=== PATIENT | female | born 1935 | race Caucasian/White ===

== ENCOUNTER 2018-06-30 20:31 | Inpatient (IN) | payer MEDICARE ==
[~2018-06-30] VITALS: Ht 165.1 cm; Wt 50.1 kg
--- NOTE | ~2018-06-30 | HEMODYNAMI ---
PATIENT:THOM NIÑO MEDICAL RECORD: [id number] : 35 [facility].2[id number] ADMISSION DATE: 06/30/18 Generatedon:07/01/201814:51 Patient name: THOM NIÑO Patient #: [id number] SSN: : 1935 Date of study: 07/01/2018 Page: Of Hemodynamic Procedure Report Patient Data Patient Demographics Procedure consent was obtained First Name: THOM Gender: Female Last Name: RENAY : 1935 Patient #: [id number] Age: 82 year(s) Race: Unknown Additional ID: [id number] Contact details [address]: [address] [place] [address] State: [place] City: [place] Zip code: [address] Admission Admission Data Admission Date: 06/30/2018 Admission Time: 22:15 Admit Source: Emergency department Room #: D.2134 Procedure Procedure Types Cath Procedure Diagnostic Procedure LHC LH w/Coronaries PCI Procedure Coronary Stent Coronary Stent Initial Procedure Description Procedure Date Procedure Date: 07/01/2018 Procedure Start Time: 14:20 Procedure End Time: 14:44 Procedure Staff Name Function Oneil Carlton RT Monitor Mario Dinero MD Performing Physician Mode Hicks RT Scrub Lindsay Laura RN Nurse Procedure Data Cath Procedure Fluoroscopy Diagnostic fluoroscopy Total fluoroscopy Time: 5.2 time: 5.2 min min Diagnostic fluoroscopy Total fluoroscopy dose: 139 dose: 139 mGy mGy Contrast Material Contrast Material Type Amount (ml) Isovue 300 144 Entry Location Entry Primary Successful Side Size Upsize Upsize Entry Closure Succes sful Closure Location (Fr) 1 (Fr) 2 (Fr) Remarks Device Remarks Femoral Right 5 Fr 6 Fr Exoseal artery Short Estimated blood loss: 10 ml Diagnostic catheters Device Type Used For End Catheter Placement MULTIPACK Pigtail 5 Fr Procedure catheter MULTIPACK JL 4.0 5Fr Procedure catheter MULTIPACK 3DRC 5Fr Procedure catheter Procedure Complications No complications Procedure Medications Medication Administration Route Dosage 0.9% NaCl I.V. 100 ml/hr Oxygen etCO2 Nasal cannula 2 l/min Lidocaine 2% added to field 20 Heparin Flush Bag added to field 2 bags (1000units/500ml NS) Versed I.V. 2 mg Fentanyl I.V. 50 mcg Versed I.V. 1 mg Fentanyl I.V. 25 mcg Heparin Bolus I.V. 4000 units Integrilin (Bolus I.V. 4.5 ml 2mg/ml) Plavix P.O. 600 mg Lopressor I.V. 5 mg Versed I.V. 1 mg Fentanyl I.V. 25 mcg Hemodynamics Rest Heart Rate: 68 (bpm) Snapshots Pre Cath Intra NCS Post Cath Vital Signs Time Heart Resp SPO2 etCO2 NIBP (mmHg) Rhythm Pain Sedation Rate (ipm) (%) (mmHg) Status Level (bpm) 13:57:49 69 10 99 3.7 170/78(125) NSR 0 (11) 10(A) , No pain 14:02:11 76 12 97 30 159/82(120) NSR 0 (11) 10(A) , No pain 14:06:29 82 13 96 22.2 151/83(114) NSR 0 (11) 10(A) , No pain 14:10:47 77 13 98 30 155/74(117) NSR 0 (11) 10(A) , No pain 14:15:07 81 13 99 20 133/67(102) NSR 0 (11) 10(A) , No pain 14:19:21 82 15 96 20 133/69(98) NSR 0 (11) 10(A) , No pain 14:23:35 83 18 97 20 114/63(92) NSR 0 (11) 10(A) , No pain 14:27:39 88 13 98 20 131/72(96) NSR 0 (11) 9(A) , No pain 14:32:32 105 16 98 25 159/86(112) NSR 0 (11) 10(A) , No pain 14:36:46 81 17 97 27 180/115(147) NSR 0 (11) 9(A) , No pain 14:41:14 71 13 96 20 182/75(138) NSR 0 (11) 9(A) , No pain 14:43:29 69 10 96 20 170/73(120) NSR 0 (11) 10(A) , No pain 14:48:39 64 13 96 0 144/67(93) NSR 0 (11) 10(A) , No pain Medications Time Medication Route Dose Verified Delivered Reason Notes Effectiveness by by 14:10:26 0.9% NaCl I.V. 100 Mario Lindsay used for ml/hr Bar Laura day habilitation specialist 14:10:34 Oxygen etCO2 2 Mario Lindsay used for Nasal l/min Bar Laura procedure cannula RN 14:10:41 Lidocaine 2% added 20ml Mario Mario for local to vial Bra Dinero MD anesthetic field 14:10:46 Heparin Flush added 2 Mario Mario used for Bag to bags Bar Dinero MD procedure (1000units/500ml field NS) 14:18:52 Versed I.V. 2 mg Mario Lindsay for sedation Bar Laura RN 14:18:58 Fentanyl I.V. 50 Mario Lindsay for sedation mcg Bar Laura RN 14:24:07 Versed I.V. 1 mg Mario Lindsay for sedation Bar Laura RN 14:24:11 Fentanyl I.V. 25 Mario Lindsay for sedation mcg Bar Laura RN 14:25:31 Heparin Bolus I.V. 4000 Mario Lindsay for verif ied units Bar Laura anticoagulation with Dr. PATTI Archibald 14:26:44 Integrilin I.V. 4.5 Mario Lindsay for waste d (Bolus 2mg/ml) ml Bar Laura anticoagulation 5.5 mL RN 14:29:18 Plavix P.O. 600 Mario Lindsay for mg Bar Laura antiplatelet RN therapy 14:34:51 Lopressor I.V. 5 mg Mario Lindsay Per physician Bar Laura RN 14:35:08 Versed I.V. 1 mg Mario Lindsay for sedation Bar Laura RN 14:35:12 Fentanyl I.V. 25 Mario Lindsay for sedation mcg Bar Laura RN Procedure Log Time Note 13:12:49 Admit Source: Emergency department 13:13:18 Diagnostic Cath status Elective 13:13:20 Mode Hicks RT(R) sent for patient. Start room use. 13:13:21 Time tracking: Regular hours (M-F 7:00 - 5:00) 13:13:27 Plan of Care:Hemodynamics will remain stable., Cardiac rhythm will remain stable., Comfort level will be maintained., Respiratory function will remain adequate., Patient/ family verbilizes understanding of procedure., Procedure tolerated without complication., Recovers from procedure without complications.. 13:48:11 Patient received from Med II to CCL 3 Alert and oriented. Tansferred to table in Supine position. 13:48:12 Warm blankets applied, and alexandria hugger turned on for patient comfort. 13:48:13 Correct patient and procedure confirmed by team. 13:48:15 Signed procedure consent form obtained from patient. 13:48:16 ECG and BP/O2 sat monitors applied to patient. 13:55:38 Vital chart was started 13:57:35 Baseline sample Acquired. 13:57:42 Rhythm: sinus rhythm 13:57:43 Full Disclosure recording started 13:57:59 H&P Date Dictated: 07/01/2018 Within 30 days and on chart.. 13:58:01 Pre-op teaching completed and patient verbalized understanding. 13:58:01 Pre-procedure instructions explained to patient. 13:58:04 Family in patients room. 13:58:06 Patient NPO since Midnight. 13:58:07 Is the patient allergic to Iodine/contrast media? No. 13:58:11 Is patient on blood thinner?No 13:58:13 Patient diabetic? No. 13:58:16 Previous problem with sedation/anesthesia? No ? 13:58:17 Snore? No 13:58:18 Sleep apnea? No 13:58:19 Deviated septum? No 13:58:20 Sticks out tongue? Yes 13:58:20 Opens mouth fully? Yes 13:58:23 Airway obstruction? No ? 13:58:24 Dentures? No ? 13:58:29 Pre procedure: right dorsailis pedis pulse 1+ Palpable, but thready & weak; easily obliterated 13:58:54 Radial artery to small for access. 13:58:57 Patient pain scale 0/10 ?. 13:59:22 IV patent on arrival in right forearm with 0.9% NaCl at [facility]. 13:59:24 Lab results completed and on chart. 13:59:29 Right groin area was prepped with chlora-prep and draped in sterile fashion 13:59:30 Alarms reviewed by R. N. 13:59:31 Sharps counted by scrub and verified by R.N. 13:59:37 Use device set Femoral Dx 13:59:39 Tegaderm 4 x 4 (1626W) opened to sterile field. 13:59:40 ACIST Manifold (21943) opened to sterile field. 13:59:41 ACIST Hand Control (00886) opened to sterile field. 13:59:43 Bag Decanter (2002S) opened to sterile field. 13:59:43 ACIST Syringe (72609) opened to sterile field. 13:59:44 Medline Cath Pack ([id number]) opened to sterile field. 13:59:45 DIAGNOSTIC WIRE .035 260cm J wire (593316) opened to sterile field. 13:59:46 DIAGNOSTIC Multipack 5Fr catheter set (CU9378) opened to sterile field. 13:59:47 SHEATH 5FR [place] (OPH255) opened to sterile field. 14:10:26 0.9% NaCl 100 ml/hr I.V. was administered by Lindsay Laura RN; used for procedure; 14:10:34 Oxygen 2 l/min etCO2 Nasal cannula was administered by Lindsay Laura RN; used for procedure; 14:10:41 Lidocaine 2% 20ml vial added to field was administered by Mario Dinero MD; for local anesthetic; 14:10:46 Heparin Flush Bag (1000units/500ml NS) 2 bags added to field was administered by Mario Dinero MD; used for procedure; 14:17:49 --------ALL STOP TIME OUT------ 14:17:50 Final Timeout: patient, procedure, and site verified with staff and physician. All members of the team are in agreement. 14:17:52 Right groin site verified by team. 14:17:55 Physical assessment completed. ASA score P 2 - A patient with mild systemic disease as per Mario Dinero MD. 14:17:57 Sedation plan: IV Moderate Sedation Medication:Versed, Fentanyl 14:18:52 Versed 2 mg I.V. was administered by Lindsay Laura RN; for sedation; 14:18:58 Fentanyl 50 mcg I.V. was administered by Lindsay Laura RN; for sedation; 14:20:50 Procedure started. 14:20:54 Local anesthetic to right femoral artery with Lidocaine 2% by Mario Dinero MD.INITIAL ACCESS ONLY 14:21:29 A 5 Fr sheath was inserted into the Right Femoral artery 14:21:36 A MULTIPACK Pigtail 5 Fr catheter was advanced over the wire and used for Procedure. 14:22:16 LV angiography performed. 14:22:17 LV gram done using GIBSON 14::24 EF : 60 % 14::27 Injector settings: Ml/sec: 7, Volume: 15, 14:22:29 Catheter removed. 14:22:35 A MULTIPACK JL 4.0 5Fr catheter was advanced over the wire and used for Procedure. 14:23:28 LCA angiography performed. 14:23:48 Catheter removed. 14:24:07 Versed 1 mg I.V. was administered by Lindsay Laura RN; for sedation; 14:24:11 Fentanyl 25 mcg I.V. was administered by Lindsay Laura RN; for sedation; 14:24:28 A MULTIPACK 3DRC 5Fr catheter was advanced over the wire and used for Procedure. 14:24:45 RCA angiography performed. 14:24:47 Catheter removed. 14:24:56 Use device set TAU PCI 14:24:59 SHEATH 6FR [place] (PII856) opened to sterile field. 14:25:03 CHOICE PT Extra Support 182cm wire ([id number]) opened to sterile field. 14:25:10 INFLATOR Merit BasixCompak (KP6157) opened to sterile field. 14:25:31 Heparin Bolus 4000 units I.V. was administered by Lindsay Laura RN; for anticoagulation; verified with Dr. Dinero 14:25:41 GUIDE 6FR AR 1.0 catheter ([id number]) opened to sterile field. 14::54 Sheath upsized to a 6 Fr Short. 14:26:00 6 Fr AR 1 guide catheter was inserted over the wire 14::44 Integrilin (Bolus 2mg/ml) 4.5 ml I.V. was administered by Lindsay Laura RN; for anticoagulation; wasted 5.5 mL 14:28:51 Guide Catheter removed. pressure damping. 14:28:58 GUIDE 6FR AR 1.0 SH catheter ([id number]) opened to sterile field. 14:29:08 6 Fr AR 1 SH guide catheter was inserted over the wire 14:29:17 CPTXS wire advanced. 14:29:18 Plavix 600 mg P.O. was administered by Lindsay Laura RN; for antiplatelet therapy; 14:29:30 Wire advanced across lesion. 14:30:10 Place stent Inflation Number: 1 A INTEGRITY RX 2.5 x 14 stent ([id number]) was prepped and advanced across the Mid RCA. The stent was deployed at 13 RANDEE for 0:10 (min:sec). 14:34:29 Timer 1 started at 2:32 PM, stopped at 2:34 PM, duration 00:02:03 sec. 14:34:42 Inflation number: 2 The stent balloon was then re-inflated across the Mid RCA to 7 RANDEE for 1:50 (min:sec). 14:34:51 Lopressor 5 mg I.V. was administered by Lindsay Laura RN; Per physician; 14:35:08 Versed 1 mg I.V. was administered by Lindsay Laura RN; for sedation; 14:35:12 Fentanyl 25 mcg I.V. was administered by Lindsay Laura RN; for sedation; 14:36:41 Timer 1 started at 2:34 PM, stopped at 2:36 PM, duration 00:01:49 sec. 14:36:53 Inflation number: 3 The stent balloon was then re-inflated across the Mid RCA to 7 RANDEE for 1:50 (min:sec). 14:40:54 Wire removed. 14:40:54 Stent catheter was removed intact over wire. 14:40:55 Guide catheter removed. 14:40:57 EXOSEAL 6Fr (EX600) opened to sterile field. 14:41:11 Sheath removed intact; hemostasis achieved with Exoseal to the Right Femoral artery. 14:41:13 Procedure ended.(Physican Out) 14:43:08 Fluoroscopy time 05.20 minutes. :43:35 Fluoroscopy dose: 139 mGy 14:43:35 Flurop Dose total: 139 14:43:41 Contrast amount:Isovue 300 144ml. 14:43:43 Sharps counted by scrub and verified by R.N. 14:43:44 Insertion/operative site no bleeding no hematoma. 14:43:53 Post-op/insertion site Right Femoral artery dressed using a 4 x 4 and Tegaderm. 14:43:55 Post Procedure Pulses reassessed and unchanged 14:43:57 Post-procedure physical assessment completed. ASA score P 2 - A patient with mild systemic disease as per Mario Dinero MD. 14:44:00 Post procedure rhythm: unchanged. 14:44:04 Estimated blood loss: 10 ml 14:44:05 Post procedure instruction explained to patient.Patient verbalizes understanding. 14:44:06 Patient needs reinforcement of post procedure teaching. 14:44:16 Procedure type changed to Cath procedure, Diagnostic procedure, LHC, C w/Coronaries, PCI procedure, Coronary Stent, Coronary Stent Initial 14:44:18 Procedure and supply charges have been captured, reviewed, submitted and are correct. 14:44:20 Procedure Complication : No complications 14:44:39 Vital chart was stopped 14:44:40 See physician's report for complete and final results. 14:44:44 Report given to [facility]. 14:44:47 Patient transfered to [facility] with Bed. 14:44:49 Full Disclosure recording stopped 14:44:49 Procedure ended. 14:44:56 End room use (Document Last) Intervention Summary Intervention Notes Time ActionType Lesion and Equipment Action# Pressure Duration Attributes Used 14:30:10 Place stent Mid RCA INTEGRITY RX 1 13 00:10 2.5 x 14 stent ([id number]) 14:34:42 Reinflate Mid RCA INTEGRITY RX 2 7 01:50 stent 2.5 x 14 balloon stent ([id number]) 14:36:53 Reinflate Mid RCA INTEGRITY RX 3 7 01:50 stent 2.5 x 14 balloon stent ([id number]) Device Usage Item Name Manufacture Quantity Catalog Number Hospital Part Current Mini [facility] Lot# / Charge Number Stock Stock Serial# Code Tegaderm 4 x 3M 1 1626W 111329 168956 215875 5 4 (1626W) ACIST Acist 1 00205 682737 774206 980711 5 Manifold Medical (01797) Systems Inc ACIST Hand Acist 1 01126 219024 513009 653867 5 Control Medical (51189) Systems Inc ACIST Acist 1 54945 240362 815231 630444 20 Syringe Medical (92554) Systems Inc Bag Decanter Microtek 1 2001S 209368 48156 208684 5 (2002S) Global Locate Inc. Medline Cath Medline 1 [id number] 403019 05689 809597 5 Pack (CSSU10823) DIAGNOSTIC [facility] Leobardo 1 945697 490302 372361 585655 30 WIRE .035 260cm J wire (358591) DIAGNOSTIC Cardinal 1 LW0184 990393 40944 228768 30 Multipack Health 5Fr catheter set (CF2146) SHEATH 5FR Terumo 1 SWE754 634753 890679 445865 5 [place] (KMS875) MULTIPACK Cardinal 1 484679 5 Pigtail 5 Fr Health catheter MULTIPACK JL Cardinal 1 418015 5 4.0 5Fr Health catheter MULTIPACK Cardinal 1 582443 5 3DRC 5Fr Health catheter SHEATH 6FR Terumo 1 RNL211 753672 140496 805407 40 [place] (TFW313) CHOICE PT [place] 1 [id number] 916660 567906 069875 5 Extra Scientific Support 182cm wire ([id number]) INFLATOR Merit 1 YV4171 464997 031965 455025 15 [facility] Medical BasixCompak (RE2286) GUIDE 6FR AR Medtronic 1 PF6IT18 220931 68845 676076 1 1.0 catheter (NL6EA23) GUIDE 6FR AR Medtronic 1 [id number] 142965 11757 966084 1 1.0 SH catheter ([id number]) INTEGRITY RX Medtronic 1 [id number] 668958 956450 642215 5 [id number] 2.5 x 14 stent ([id number]) EXOSEAL 6Fr Cardinal 1 EX600 718671 104540 990999 10 (EX600) Health Signature Audit [place] Stage Time Signature Unsigned Intra-Procedure 07/01/2018 Oneil Carlton RT(R) 2:45:23 PM RT(R) 07/01/2018 2:47:31 PM Intra-Procedure 07/01/2018 Oneil Carlton 2:51:00 PM RT(R) Signatures Monitor : Oneil Carlton RT Signature : Date : Time : [facility] [address] [place] [address]
[2018-06-30] MEDS ORDERED: CALCIUM 250+D T1 TAB PO (20:39)
[2018-06-30] MEDS ORDERED: BAYER CHEWABLE81 MG PO (20:39)
[2018-07-01] VITALS (8 sets, daily range): BP systolic 92–157; BP diastolic 51–74; Ht 165.1 cm; Wt 50.1 kg
[2018-07-01 12:10] LABS: BASOPHILS 0.4 % (0-2); EOSINOPHILS 0.7 % (0-7); HEMATOCRIT 39.9 % (36.0-48.0); HEMOGLOBIN 13.3 g/dL (12-16); IMMATURE GRANULOCYTES 0.2 % (0-5); MCH 31.7 pg (26.0-34.0); MCHC 33.3 g/dL (31.0-37.0); MEAN PLATELET VOLUME 9.8 fL (7.4-10.4); MONOCYTES 11.8 % (2-11); NEUTROPHILS 60.9 % (40-80); PLATELET COUNT 236 10x3/uL (130-400); RDW 14.8 % (11.5-14.5); WBC 5.4 10x3/uL (4.8-10.8)
[2018-07-01 12:18] LABS: CALC OSMOLALITY 279 mosm/kg (275-300); CALCIUM 8.9 mg/dL (8.5-10.1); CARBON DIOXIDE 24.2 mmol/L (21.0-32.0); CHLORIDE - SERUM 104 mmol/L (98-107); CREATININE - SERUM 0.7 mg/dL (0.6-1.3); GLUCOSE 97 mg/dL (74-106); POTASSIUM - SERUM 4.2 mmol/L (3.5-5.1); SODIUM 140 mmol/L (136-145); UREA NITROGEN 15 mg/dL (7-18); eGFR NON AFRICAN AMERICAN 85 mL/min (90-120)
--- NOTE | 2018-07-01 13:06 | MORECARE ---
CASE MANAGEMENT DISCHARGE SUMMARY PATIENT: THOM NIÑO UNIT: [id number] ADM DATE: 06/30/18 AGE: 82 : 35 SEX: F ROOM/BED: D.2134 AUTHOR: GERTRUDE PETERSON PHYSICIAN: REFERRING PHYSICIAN: CHARAN CREWS MD DATE OF SERVICE: 07/01/18 Discharge Plan Patient Name: THOM NIÑO Facility: [facility]:[place] : 1935 Planned Disposition: Anticipated Discharge Date: Discharge Date: Expected LOS: Initial Reviewer: [email or web address] Initial Review Date: 07/01/2018 Generated: 07/01/18 2:06 pm Patient Name: THOM NIÑO Page 20689 at 1306 All edits/amendments must be made on the electronic document DICTATION DATE: 07/01/18 1305 COLLISION MECHANIC: DIAN 07/01/18 1305 RPT#: [id number] DC DATE: STATUS: ADM IN [facility] [address] [place] [address] END OF REPORT
[2018-07-01 23:26] LABS: BASOPHILS 0.2 % (0-2); EOSINOPHILS 0.3 % (0-7); HEMATOCRIT 37.3 % (36.0-48.0); HEMOGLOBIN 11.8 g/dL (12-16); IMMATURE GRANULOCYTES 0.6 % (0-5); LYMPHOCYTES 5.7 % (15-50); MCH 29.9 pg (26.0-34.0); MCHC 31.6 g/dL (31.0-37.0); MCV 94.7 fL (80.0-100.0); MEAN PLATELET VOLUME 9.8 fL (7.4-10.4); MONOCYTES 3.5 % (2-11); NEUTROPHILS 89.7 % (40-80); PLATELET COUNT 211 10x3/uL (130-400); RBC 3.94 10x6/uL (4.00-5.40); RDW 14.9 % (11.5-14.5)
[2018-07-01 23:27] LABS: WBC 15.5 10x3/uL (4.8-10.8)
[2018-07-02] VITALS (35 sets, daily range): BP systolic 89–153; BP diastolic 31–79
[2018-07-02 06:12] LABS: BASOPHILS 0.1 % (0-2); EOSINOPHILS 0 % (0-7); HEMATOCRIT 34.6 % (36.0-48.0); HEMOGLOBIN 11.3 g/dL (12-16); IMMATURE GRANULOCYTES 0.3 % (0-5); MCHC 32.7 g/dL (31.0-37.0); MCV 95.1 fL (80.0-100.0); MEAN PLATELET VOLUME 9.9 fL (7.4-10.4); MONOCYTES 1.9 % (2-11); NEUTROPHILS 92.7 % (40-80); PLATELET COUNT 210 10x3/uL (130-400); RBC 3.64 10x6/uL (4.00-5.40); RDW 15.1 % (11.5-14.5)
[2018-07-02 06:15] LABS: WBC 9.6 10x3/uL (4.8-10.8)
[2018-07-02 06:34] LABS: CALCIUM 8.1 mg/dL (8.5-10.1); CARBON DIOXIDE 18.7 mmol/L (21.0-32.0); CHLORIDE - SERUM 108 mmol/L (98-107); CREATININE - SERUM 0.7 mg/dL (0.6-1.3); MAGNESIUM - SERUM 1.8 mg/dL (1.8-2.4); SODIUM 140 mmol/L (136-145); eGFR NON AFRICAN AMERICAN 85 mL/min (90-120)
[2018-07-02 06:36] LABS: CALC OSMOLALITY 285 mosm/kg (275-300); GLUCOSE 148 mg/dL (74-106); UREA NITROGEN 23 mg/dL (7-18)
[2018-07-03] VITALS (28 sets, daily range): BP systolic 109–151; BP diastolic 53–72
[2018-07-03 06:23] LABS: BASOPHILS 0.2 % (0-2); EOSINOPHILS 0.3 % (0-7); HEMATOCRIT 32.7 % (36.0-48.0); HEMOGLOBIN 10.9 g/dL (12-16); IMMATURE GRANULOCYTES 0.1 % (0-5); LYMPHOCYTES 15.8 % (15-50); MCH 31.2 pg (26.0-34.0); MCHC 33.3 g/dL (31.0-37.0); MCV 93.7 fL (80.0-100.0); MEAN PLATELET VOLUME 9.6 fL (7.4-10.4); MONOCYTES 14.7 % (2-11); NEUTROPHILS 68.9 % (40-80); PLATELET COUNT 195 10x3/uL (130-400); RBC 3.49 10x6/uL (4.00-5.40); RDW 15.1 % (11.5-14.5); WBC 8.8 10x3/uL (4.8-10.8)
[2018-07-03 06:44] LABS: ANION GAP 12.4 mmol/L (8-16); CALCIUM 8.2 mg/dL (8.5-10.1); POTASSIUM - SERUM 4.4 mmol/L (3.5-5.1)
[2018-07-03 06:45] LABS: CREATININE - SERUM 0.9 mg/dL (0.6-1.3)
[2018-07-04] VITALS (25 sets, daily range): BP systolic 106–168; BP diastolic 49–69
[2018-07-04 06:36] LABS: BASOPHILS 0.2 % (0-2); EOSINOPHILS 0.5 % (0-7); HEMATOCRIT 33.3 % (36.0-48.0); HEMOGLOBIN 11.1 g/dL (12-16); IMMATURE GRANULOCYTES 0.2 % (0-5); MCH 31.1 pg (26.0-34.0); MCHC 33.3 g/dL (31.0-37.0); MCV 93.3 fL (80.0-100.0); MEAN PLATELET VOLUME 10.3 fL (7.4-10.4); MONOCYTES 11.5 % (2-11); NEUTROPHILS 73.6 % (40-80); PLATELET COUNT 178 10x3/uL (130-400); RBC 3.57 10x6/uL (4.00-5.40); RDW 14.9 % (11.5-14.5)
[2018-07-04 07:09] LABS: CALC OSMOLALITY 283 mosm/kg (275-300); CALCIUM 8.1 mg/dL (8.5-10.1); CHLORIDE - SERUM 108 mmol/L (98-107); CREATININE - SERUM 0.7 mg/dL (0.6-1.3); GLUCOSE 90 mg/dL (74-106); MAGNESIUM - SERUM 1.8 mg/dL (1.8-2.4); POTASSIUM - SERUM 3.9 mmol/L (3.5-5.1); SODIUM 141 mmol/L (136-145); UREA NITROGEN 20 mg/dL (7-18); eGFR NON AFRICAN AMERICAN 85 mL/min (90-120)
[2018-07-05 03:00] VITALS: BP 109/52
[2018-07-05 05:51] LABS: BASOPHILS 0.4 % (0-2); EOSINOPHILS 1.1 % (0-7); HEMATOCRIT 35.7 % (36.0-48.0); IMMATURE GRANULOCYTES 0.2 % (0-5); LYMPHOCYTES 24.6 % (15-50); MCH 31.6 pg (26.0-34.0); MCHC 33.6 g/dL (31.0-37.0); MCV 93.9 fL (80.0-100.0); MEAN PLATELET VOLUME 9.7 fL (7.4-10.4); MONOCYTES 9.9 % (2-11); NEUTROPHILS 63.8 % (40-80); PLATELET COUNT 195 10x3/uL (130-400); RDW 14.5 % (11.5-14.5); WBC 5.4 10x3/uL (4.8-10.8)
[2018-07-05 06:04] LABS: CALC OSMOLALITY 280 mosm/kg (275-300); CALCIUM 8.3 mg/dL (8.5-10.1); CARBON DIOXIDE 27.5 mmol/L (21.0-32.0); CHLORIDE - SERUM 105 mmol/L (98-107); CREATININE - SERUM 0.7 mg/dL (0.6-1.3); GLUCOSE 91 mg/dL (74-106); MAGNESIUM - SERUM 1.8 mg/dL (1.8-2.4); POTASSIUM - SERUM 3.7 mmol/L (3.5-5.1); SODIUM 140 mmol/L (136-145); UREA NITROGEN 18 mg/dL (7-18); eGFR NON AFRICAN AMERICAN 85 mL/min (90-120)
[2018-07-05 07:30] VITALS: BP 123/51
[2018-07-05 09:00] VITALS: BP 122/55
[2018-07-05] MEDS ORDERED: PLAVIX75 MG PO ×2 (10:13→10:25)
[2018-07-05] MEDS ORDERED: ASPIRIN325 MG PO (10:15)
[2018-07-05] MEDS ORDERED: LIPITOR20 MG PO ×2 (10:16→10:25)
--- NOTE | 2018-07-05 10:23 | MORECARE ---
CASE MANAGEMENT DISCHARGE SUMMARY PATIENT: THOM NIÑO UNIT: [id number] ADM DATE: 07/01/18 AGE: 82 : 35 SEX: F ROOM/BED: [facility] AUTHOR: GERTRUDE PETERSON PHYSICIAN: REFERRING PHYSICIAN: CHARAN CREWS MD DATE OF SERVICE: 07/05/18 Discharge Plan Patient Name: THOM NIÑO Facility: [facility]:[place] : 1935 Planned Disposition: Home Anticipated Discharge Date: Discharge Date: Expected LOS: Initial Reviewer: [email or web address] Initial Review Date: 07/05/2018 Generated: 07/05/18 11:23 am Last DP export: 07/01/18 12:06 p Patient Name: THOM NIÑO Page 80351 at 1023 All edits/amendments must be made on the electronic document DICTATION DATE: 07/05/18 1022 JUNIOR LINUX ADMINISTRATOR: DIAN 07/05/18 1022 RPT#: [id number] DC DATE: STATUS: ADM IN [facility] [address] [place] [address] END OF REPORT
--- NOTE | 2018-07-05 10:33 | MORECARE ---
CASE MANAGEMENT DISCHARGE SUMMARY PATIENT: THOM NIÑO UNIT: [id number] ADM DATE: 07/01/18 AGE: 82 : 35 SEX: F [facility] AUTHOR: NICHOLASDOC PHYSICIAN: REFERRING PHYSICIAN: CHARAN CREWS MD DATE OF SERVICE: 07/05/18 Discharge Plan Patient Name: THOM NIÑO Facility: [facility]:[place] : 1935 Planned Disposition: Home Anticipated Discharge Date: Discharge Date: Expected LOS: Initial Reviewer: [email or web address] Initial Review Date: 07/05/2018 Generated: 07/05/18 11:33 am Comments DCP- Discharge Planning Updated by [email or web address]: Katy Bucio on 07/05/18 9:[address] Patient Name: THOM NIÑO Admission Status: ER Accout number: [id number] Admission Date: 07-01-2018 : 1935 Admission Diagnosis: Attending: MARS, Current LOS: 4 Anticipated DC Date: Planned Disposition: Home Primary Insurance: [facility] MEDICARE SOLUTIONS Discharge Planning Comments: CM met with patient and spouse at bedside. Patient states she plans on returning to her home with her . Patient states that she is independent of all her ADL's. Patient denies any medical equipment or home health services prior to admission. Patients denies any discharge needs at this time. CM will continue to follow and assist as needed with discharge planning / needs. Environment Artist: Katy Bucio Appended by Katy Bucio on 07/05/2018 10:31 GUIDANCE SECRETARY: D/C IMM EXPLAINED AND SERVED 07/05/18 @ 1000 DCPIA - Discharge Planning Initial Assessment Updated by [email or web address]: Katy Bucio on 07/05/18 10:24 am * Is the patient Alert and Oriented? Yes * How many steps to enter\exit or inside your home? * PCP Dr. Derek Carreno MD * Pharmacy [facility] * Preadmission Environment Home with Family * ADLs Independent * Equipment None * List name and contact numbers for known caregivers / representatives who currently or will assist patient after discharge: ANKUSH CHEW - [phone] * Verbal permission to speak to the caregivers and representatives has been obtained from the patient. Yes * Community resources currently utilized None * Additional services required to return to the preadmission environment? No * Can the patient safely return to the preadmission environment? Yes * Has this patient been hospitalized within the prior 30 days at any hospital? No Coverage Notice Reviewer: [email or web address] Naye Bucio Notice Issued Date-Time: 07/05/2018 10:00 Notice Type: IM Discharge Notice Notice Delivered To: Patient Relationship to Patient: Self Editing Intern Name: Delivery Method: HAND - Hand Delivered Isha Days: Prior Verbal Notification: Recipient Understood Notice: Yes Recipient Signature: Yes Med Rec Note Co-signed by Attending: Coverage Notice Comment: Last DP export: 07/05/18 9:23 a Patient Name: THOM NIÑO Page 58823 at 1033 All edits/amendments must be made on the electronic document DICTATION DATE: 07/05/18 1033 WATCH SUPERVISOR: DIAN 07/05/18 1033 RPT#: [id number] DC DATE: STATUS: ADM IN [facility] [address] [place] [address] END OF REPORT
--- NOTE | 2018-07-05 16:43 | MORECARE ---
CASE MANAGEMENT DISCHARGE SUMMARY PATIENT: THOM NIÑO UNIT: [id number] ADM DATE: 07/01/18 AGE: 82 : 35 SEX: F [facility] AUTHOR: NICHOLAS,DOC PHYSICIAN: REFERRING PHYSICIAN: CHARAN CREWS MD DATE OF SERVICE: 07/05/18 Discharge Plan Patient Name: THOM NIÑO Facility: [facility]:[place] : 1935 Planned Disposition: Home Anticipated Discharge Date: Discharge Date: 07/05/2018 Expected LOS: Initial Reviewer: [email or web address] Initial Review Date: 07/05/2018 Generated: 07/05/18 5:43 pm Comments DCP- Discharge Planning Updated by [email or web address]: Katy Bucio on 07/05/18 9:[address] Patient Name: THOM NIÑO Admission Status: ER Accout number: [id number] Admission Date: 07-01-2018 : 1935 Admission Diagnosis: Attending: MARS, Current LOS: 4 Anticipated DC Date: Planned Disposition: Home Primary Insurance: [facility] MEDICARE SOLUTIONS Discharge Planning Comments: CM met with patient and spouse at bedside. Patient states she plans on returning to her home with her . Patient states that she is independent of all her ADL's. Patient denies any medical equipment or home health services prior to admission. Patients denies any discharge needs at this time. CM will continue to follow and assist as needed with discharge planning / needs. Machine Cloth Trimmer: Katy Bucio Appended by Katy Bucio on 07/05/2018 10:31 INSPECTOR OF DREDGING: D/C IMM EXPLAINED AND SERVED 07/05/18 @ 1000 DCPIA - Discharge Planning Initial Assessment Updated by [email or web address]: Katy Bucio on 07/05/18 10:24 am * Is the patient Alert and Oriented? Yes * How many steps to enter\exit or inside your home? * PCP Dr. Derek Carreno MD * Pharmacy [facility] * Preadmission Environment Home with Family * ADLs Independent * Equipment None * List name and contact numbers for known caregivers / representatives who currently or will assist patient after discharge: ANKUSH CHEW - [phone] * Verbal permission to speak to the caregivers and representatives has been obtained from the patient. Yes * Community resources currently utilized None * Additional services required to return to the preadmission environment? No * Can the patient safely return to the preadmission environment? Yes * Has this patient been hospitalized within the prior 30 days at any hospital? No Coverage Notice Reviewer: [email or web address] Naye Bucio Notice Issued Date-Time: 07/05/2018 10:00 Notice Type: IM Discharge Notice Notice Delivered To: Patient Relationship to Patient: Self Cook Candy Name: Delivery Method: HAND - Hand Delivered Isha Days: Prior Verbal Notification: Recipient Understood Notice: Yes Recipient Signature: Yes Med Rec Note Co-signed by Attending: Coverage Notice Comment: Last DP export: 07/05/18 9:33 a Patient Name: THOM NIÑO Page 96139 at 1643 All edits/amendments must be made on the electronic document DICTATION DATE: 07/05/181642 SUPERVISOR CIGAR MAKING MACHINE: DIAN 07/05/181642 RPT#: [id number] DC DATE:07/05/18 STATUS: DIS IN [facility] [address] [place] [address] END OF REPORT
--- NOTE | 2018-07-08 12:11 | OP ---
PATIENT NAME: THOM NIÑO MEDICAL RECORD: [id number] :35 LOCATION:[facility] ADMISSION DATE:07/01/18 SURGEON: ERICK TUBBS MD DATE OF OPERATION: 07/01/2018 PROCEDURES: 1. PTCA stent RCA. 2. Left heart catheterization. 3. Selective coronary angiography. 4. Left ventriculogram. INDICATION: Chest pain compatible with angina. PROCEDURE IN DETAIL: After informed consent was obtained and after a detailed description of risks, benefits as well as alternative therapies, the patient elected to proceed with angiogram and angioplasty. The right femoral area was prepped and draped in normal sterile fashion. Right femoral artery was cannulated via modified Seldinger technique with placement of 6-Kinyarwanda sheath. All catheters exchanged through this sheath. FINDINGS: Left ventriculogram was performed in standard 30-degree GIBSON view, reveals good cardiac wall motion throughout all segments. Overall ejection fraction estimated at 60%. SELECTIVE CORONARY ANGIOGRAPHY: 1. Left main has no significant angiographic disease. 2. Left anterior descending has moderate irregularities, but no flow-limiting stenosis. 3. The left circumflex has moderate irregularities, but no flow-limiting stenosis. 4. Right coronary has 75% stenosis mid vessel, is addressed with a 2.5 x 14 mm Integrity stent. OVERALL IMPRESSION: Successful percutaneous transluminal coronary angioplasty stent of the right coronary artery going from 75% initial stenosis to 0% residual. TRANSINT:[id number] Voice Confirmation ID: [id number] DOCUMENT ID: [id number] ERICK TUBBS MD at 1211 CC: [id number] DICTATION DATE: 07/01/18 1446 FURNACE CARETAKER: 07/01/181941 DIS IN 07/05/18 [facility] [address] [id number]
--- NOTE | 2018-07-08 12:11 | EC ---
PATIENT:THOM NIÑO DATE OF SERVICE: 06/30/18 SEX: F MEDICAL RECORD: [id number] DATE OF : 35 LOCATION:[place] [address] AGE OF PATIENT: 82 ADMISSION DATE: 07/01/18 REFERRING PHYSICIAN: INTERPRETING PHYSICIAN: ERICK DINERO MD ECHOCARDIOGRAM REPORT ECHO CHARGES 5 ECHO LIMITED Date: 07/01/18 CLINICAL DIAGNOSIS: ASSESS FOR PERICARDIAL EFFUISION ECHOCARDIOGRAPHIC MEASUREMENTS (adult normal given) AC root (d.<3.7cm) 4.0 cm LV Septum d (<1.2 cm> 1.3 cm Valve Excursion 1.7 cm LV Septum (systole) 1.4 cm Left Atria (s.<4.0cm> 3.2 cm LVPW d(<1.2cm) 1.7 cm RV (d.<2.3cm) 3.9 cm LVPW (sytole) 1.9 cm LV diastole(<5.6CM) 4.7 cm MV E-F(>70mm/sec) cm LV systole 3.5 cm LVOT Diameter 1.8 cm MV exc.(>10mm) 1.6 cm Est.ejection fraction (50-75%) % DOPPLER: LVIT cm/sec A 86.0 cm/sec E 44.0 cm/sec LA cm/sec RVSP 29 mmHg LVOT 110 cm/sec AOP1/2T m/s Asc. Ao 131 cm/sec RVOT 72 cm/sec RA cm/sec PA 126 cm/sec AV Gradient Peak 6.86 mmHg AV Mean 3.52 mmHg AV Area 2.2 cm MV Gradient Peak 4.45 mmHg MV Mean 1.53 mmHg MV Area cm COMMENTS: Supervisor Telephone Information: Madelaine VEGA Beam Worker: Sean Dinero TAPE# PACS Pericardial Effusion N DATE OF SERVICE: 07/01/2018 ECHOCARDIOGRAM DATE OF SERVICE: 07/01/2018 FINDINGS: 1. Left ventricular chamber size is within normal limits. Left ventricular systolic function is normal. Overall ejection fraction is estimated at 55%. 2. Left atrium, right atrium, and right ventricle chamber sizes are within ECHOCARDIOGRAM REPORT [id number] THOM NIÑO normal limits. 3. Valvular structures have normal structure and motion. 4. Doppler interrogation reveals trace mitral regurgitation, mild tricuspid regurgitation, no other valvular insufficiency or stenosis. Pulmonary systolic pressure is estimated at 29 mmHg. 5. No evidence of pericardial effusion or left ventricular thrombus. TRANSINT:[id number] Voice Confirmation ID: [id number] DOCUMENT ID: [id number] ERICK DINERO MD at 1211 CC: [id number] DICTATION DATE: 07/01/18 1508 COAL CRUSHER OPERATOR: 07/01/181950 DIS IN 07/05/18 [facility] [address] [id number]
== END 2018-07-05 11:19 | disposition home or self-care (01) | DRG 249 ==
LOC: D.ER 20:31 → D.M2 22:15 → OBSVTIME 22:15 → D.M2 22:15 → D.CVICU 07-01 23:26 → D.ICU 07-04 14:18 → D.CVICU 07-04 14:23
PROVIDERS: Internal Medicine Cardiovascular Disease; Internal Medicine Interventional Cardiology; ADMIT Family Medicine
PROC: B2151ZZ Fluoroscopy of Left Heart using Low Osmolar Contrast (ICD-10-PCS; 2018-07-01)
PROC: 02703DZ Dilation of Coronary Artery, One Artery with Intraluminal Device, Percutaneous Approach (ICD-10-PCS; principal; 2018-07-01 13:30)
PROC: B2111ZZ Fluoroscopy of Multiple Coronary Arteries using Low Osmolar Contrast (ICD-10-PCS; 2018-07-01 13:30)
DX: I25.110 Atherosclerotic heart disease of native coronary artery with unstable angina pectoris (principal); I31.3 Pericardial effusion (noninflammatory); I97.51 Accidental puncture and laceration of a circulatory system organ or structure during a circulatory system procedure; Z82.49 Family history of ischemic heart disease and other diseases of the circulatory system; I10 Essential (primary) hypertension; E78.5 Hyperlipidemia, unspecified; I95.9 Hypotension, unspecified; R00.0 Tachycardia, unspecified; D64.9 Anemia, unspecified

== ENCOUNTER 2018-07-14 08:59 | Emergency (ER) | payer MEDICARE ==
[~2018-07-14] VITALS: Ht 165.1 cm; Wt 50.0 kg
[~2018-07-14 08:59] MED LIST: ASPIRIN325 MG PO; BAYER CHEWABLE81 MG PO; CALCIUM 250+D T1 TAB PO; LIPITOR20 MG PO; PLAVIX75 MG PO
[2018-07-14 09:02] VITALS: Ht 165.1 cm; Wt 50.0 kg
[2018-07-14 10:26] LABS: CREATINE KINASE 27 UL (21-215)
[2018-07-14 10:28] LABS: TROPONIN-I < 0.017 ng/mL (0.000-0.060)
[2018-07-14] MEDS ORDERED: ISOSORBIDE MONO30 M1 PO (10:42)
[2018-07-14 11:21] VITALS: BP 162/81
== END 2018-07-14 11:20 | disposition home or self-care (01) ==
LOC: D.ER 08:59
PROVIDERS: Emergency Medicine
DX: I20.9 Angina pectoris, unspecified (principal)

== ENCOUNTER → 2019-04-18 08:45 | Outpatient (CLI) | payer MEDICARE ==
[2018-07-14 09:02] VITALS: BMI 18.3
[~2019-04-18 08:45] MED LIST changes: +ISOSORBIDE MONO30 M1 PO
== END | disposition home or self-care (01) ==
LOC: D.HCCARDIO 08:45
PROVIDERS: ATTEND Internal Medicine Cardiovascular Disease
DX: I25.119 Atherosclerotic heart disease of native coronary artery with unspecified angina pectoris (principal)

== ENCOUNTER 2019-04-25 10:09 | Outpatient (CLI) | payer MEDICARE ==
[~2019-04-25] VITALS: Ht 165.1 cm; Wt 48.6 kg
--- NOTE | ~2019-04-25 | HEMODYNAMI ---
PATIENT:THOM NIÑO MEDICAL RECORD: [id number] : 35 LOCATION:[facility] ADMISSION DATE: 04/25/19 Generatedon:04/25/201913:18 Patient name: THOM NIÑO Patient #: [id number] SSN: [id number] : 1935 Date of study: 04/25/2019 Page: Of Hemodynamic Procedure Report Patient Data Patient Demographics Procedure consent was obtained First Name: THOM Gender: Female Last Name: RENAY : 1935 Patient #: [id number] Age: 83 year(s) Race: SSN: [id number] Additional ID: [id number] Contact details [address]: [address] [place] [address] State: [place] City: [place] Zip code: [address] Past Medical History Allergies Allergen Reaction Date Comments Reported Other allergy 04/25/2019 Yeast, Steroids, PCN Admission Admission Data Admission Date: 04/25/2019 Admission Time: 10:09 Arrival Date: 04/25/2019 Arrival Time: 0:00 Height (in.): 64.96 BSA: 1.52 (m2) Height (cm.): 165 BMI: 18 (kg/m2) Weight (lbs.): 108.03 Weight (kg.): 49 Lab Results Lab Result Date: 04/25/2019 Lab Result Time: 0:00 Biochemistry Name Units Result Min Max BUN mg/dl 19 --(----)*- 7 18 Creatinine mg/dl 0.7 --(*---)-- 0.6 1.3 eGFR ml/min 85.98465 -*(----)-- 90 120 NONAFRICAN CBC Name Units Result Min Max Hematocrit % 43.3 --(*---)-- 42 54 Hemoglobin g/dl 14.4 --(*---)-- 13.5 17.5 Procedure Procedure Types Cath Procedure Diagnostic Procedure [facility] w/Coronaries Procedure Description Procedure Date Procedure Date: 04/25/2019 Procedure Start Time: 12:59 Procedure End Time: 13:17 Procedure Staff Name Function Stephen Wylie MD Performing Physician Consuelo Alejandro RT Monitor Noemi Yeboah RT Monitor Chele Leggett RN Nurse Mode Hicks RT Scrub Indication CAD Procedure Data Cath Procedure Fluoroscopy Diagnostic fluoroscopy Total fluoroscopy Time: 1.6 time: 1.6 min min Diagnostic fluoroscopy Total fluoroscopy dose: 248 dose: 248 mGy mGy Contrast Material Contrast Material Type Amount (ml) Isovue 300 67 Entry Location Entry Primary Successful Side Size Upsize Upsize Entry Closure Succes sful Closure Location (Fr) 1 (Fr) 2 (Fr) Remarks Device Remarks Femoral Right 5 Fr Exoseal artery Estimated blood loss: 5 ml Diagnostic catheters Device Type Used For End Catheter Placement MULTIPACK JL 4.0 5Fr Procedure catheter MULTIPACK 3DRC 5Fr Procedure catheter MULTIPACK Pigtail 5 Fr Procedure catheter Procedure Complications No complications Procedure Medications Medication Administration Route Dosage Oxygen etCO2 Nasal cannula 2 l/min Lidocaine 2% added to field 20 Heparin Flush Bag added to field 2 bags (1000units/500ml NS) 0.9% NaCl I.V. 100 ml/hr Versed I.V. 1 mg Fentanyl I.V. 50 mcg Versed I.V. 1 mg Fentanyl I.V. 50 mcg Hemodynamics Rest BSA: 1.52 (m2) HGB: 14.4 (g/dl) O2 Consumption: Estimated: 151.97 (ml/min) O2 Co nsumption indexed: Estimated:99.98 (ml/min/m) Heart Rate: 98 (bpm) Pressure Samples Time Site Value (mmHg) Purpose Heart Use Rate(bpm) 13:10 LV 155/4,14 Snapshot 98 Gradients Valve Time Site Site Mean SEP/DFP Peak To Heart Use 1 2 (mmHg) (sec/min) Peak Rate (mmHg) (bpm) Aortic 13:11 LV AO 91 Snapshots Pre Cath Intra NCS Post Cath Vital Signs Time Heart Resp SPO2 etCO2 NIBP (mmHg) Rhythm Pain Sedation Rate (ipm) (%) (mmHg) Status Level (bpm) 12:48:45 77 18 96 0 170/76(101) NSR 0 (11) 10(A) , No pain 12:54:13 88 10 98 35.1 161/82(124) NSR 0 (11) 10(A) , No pain 12:58:31 82 10 98 26.1 141/70(109) NSR 0 (11) 10(A) , No pain 13:02:41 83 10 94 0 142/71(102) NSR 0 (11) 9(A) , No pain 13:06:49 97 12 94 0 151/78(113) NSR 0 (11) 9(A) , No pain 13:11:03 96 10 94 0 138/71(82) NSR 0 (11) 10(A) , No pain 13:15:12 82 9 98 44.1 148/73(117) NSR 0 (11) 10(A) , No pain Medications Time Medication Route Dose Verified Delivered Reason Notes Eff ectiveness by by 12:43:23 Oxygen etCO2 2 Stephen Buffie used for Nasal l/min Dejan Leggett RN procedure cannula 12:43:28 Lidocaine 2% added 20ml Stephen Stephen for local to vial Dejan Wylie MD anesthetic field 12:43:35 Heparin Flush added 2 Stephen Stephen used for Bag to bags Dejna Wylie MD procedure (1000units/500ml field NS) 12:43:43 0.9% NaCl I.V. 100 Stephen Buffie Per ml/hr Dejan Leggett RN physician 12:58:03 Fentanyl I.V. 50 Stephen Buffie for mcg Dejan Leggett RN sedation 12:58:57 Versed I.V. 1 mg Stephen Buffie for Dejan Leggett RN sedation 13:05:03 Versed I.V. 1 mg Stephen Buffie for Dejan Leggett RN sedation 13:05:09 Fentanyl I.V. 50 Stephen Buffie for [facility] Dejan Leggett RN sedation Procedure Log Time Note 12:37:54 Procedure Status Elective Heart Cath (OP). 12:37:57 Mode Suit RT(R) sent for patient. Start room use. 12:38:00 Time tracking: Regular hours (M-F 7:00 - 5:00) 12:38:04 Plan of Care:Hemodynamics will remain stable., Cardiac rhythm will remain stable., Comfort level will be maintained., Respiratory function will remain adequate., Patient/ family verbilizes understanding of procedure., Procedure tolerated without complication., Recovers from procedure without complications.. 12:40:53 Lab Result : BUN 19 mg/dl 12:40:53 Lab Result : Creatinine 0.7 mg/dl 12:40:53 Lab Result : eGFR NONAFRICAN 85.53002 ml/min 12:40:53 Lab Result : Hemoglobin 14.4 g/dl 12:40:53 Lab Result : Hematocrit 43.3 % 12:41:00 Lab results completed and on chart. 12:42:48 Patient received from Pre/Post Procedure Room to CCL 1 Alert and oriented. Tansferred to table in Supine position. 12:42:51 Signed procedure consent form obtained from patient. 12:42:52 Warm blankets applied, and alexandria hugger turned on for patient comfort. 12:42:53 Correct patient and procedure confirmed by team. 12:43:11 ACC Patient presents with Stable Angina CCS Anginal Class 1--Ordinary physical activity does not cause angina, angina occurs with strenuos, rapid, or prolonged activity.. 12:43:15 ECG and BP/O2 sat monitors applied to patient. 12:43:23 Oxygen 2 l/min etCO2 Nasal cannula was administered by Chele Leggett RN; used for procedure; Verbal order read back and verified. 12:43:28 Lidocaine 2% 20ml vial added to field was administered by Stephen Wylie MD; for local anesthetic; Verbal order read back and verified. 12:43:28 H&P Date Dictated: 04/25/2019 Within 30 days and on chart.. 12:43:29 Pre-procedure instructions explained to patient. 12:43:30 Pre-op teaching completed and patient verbalized understanding. 12:43:32 Family in waiting room. 12:43:34 Patient NPO since Midnight. 12:43:35 Heparin Flush Bag (1000units/500ml NS) 2 bags added to field was administered by Stephen Wylie MD; used for procedure; Verbal order read back and verified. 12:43:43 0.9% NaCl 100 ml/hr I.V. was administered by Chele Leggett RN; Per physician; Verbal order read back and verified. 12:44:19 Patient allergic to Other allergyYeast, Steroids, PCN 12:44:24 Is the patient allergic to Iodine/contrast media? No. 12:44:26 Is patient on blood thinner?Yes 12:44:29 ACC The patient was administered the following blood thiners within the last 24 hours: ACCPlavix 12:44:32 Was the patient premedicated? Yes 12:45:50 If diabetic: On Metformin? N/A 12:45:53 Patient not . Patient is over age 55. 12:46:00 Previous problem with sedation/anesthesia? No ? 12:46:01 Snore? No 12:46:03 Sleep apnea? No 12:46:05 Deviated septum? No 12:46:06 Opens mouth fully? Yes 12:46:07 Sticks out tongue? Yes 12:46:10 Airway obstruction? No ? 12:46:12 Dentures? No ? 12:46:48 Patient pain scale 0/10 ?. 12:46:54 IV patent on arrival in left antecubital with 0.9% NaCl at [facility] 12:47:01 Stress Test: no; N/A ? 12:47:18 Risk of Mortality: 0.7 12:47:21 Risk of blood transfusion: 1.8 12:47:24 Risk of NURA: 2.0 12:47:36 Vital chart was started 12:47:48 Pre procedure: right dorsailis pedis pulse 2+ Normal; easily identifiable; not easily obliterated 12:48:04 Alarms reviewed by R. N. 12:48:04 Sharps counted by scrub and verified by R.N. 12:49:19 Baseline sample Acquired. 12:49:22 Full Disclosure recording started 12:51:23 Right groin area was prepped with chlora-prep and draped in sterile fashion 12:52:16 Use device set Femoral Dx 12:52:20 ACIST Syringe (05470) opened to sterile field. 12:52:22 Bag Decanter (2002S) opened to sterile field. 12:52:25 ACIST Hand Control (65081) opened to sterile field. 12:52:27 ACIST Manifold (12699) opened to sterile field. 12:52:28 Tegaderm 4 x 4 (1626W) opened to sterile field. 12:52:31 SHEATH 5FR Wallace (CYZ606) opened to sterile field. 12:52:31 EMERALD Guide Wire (055-078) opened to sterile field. 12:52:37 DIAGNOSTIC Multipack 5Fr catheter set (AJ4030) opened to sterile field. 12:52:44 Medline Cath Pack ([id number]) opened to sterile field. 12:54:19 Baseline sample Acquired. 12:54:25 Rhythm: sinus rhythm :57:43 --------ALL STOP TIME OUT------ 12:57:43 Final Timeout: patient, procedure, and site verified with staff and physician. All members of the team are in agreement. 12:57:46 Right groin site verified by team. 12:57:50 Fire Safety Assessment: A--An alcohol-based skin anteseptic being used preoperatively., C--Open oxygen or nitrous oxide is being used., D--An ESU, laser, or fiber-optic light is being used. 12:57:55 Physical assessment completed. ASA score P 2 - A patient with mild systemic disease as per Stephen Wylie MD. 12:58:00 2) 60-89 Mildly reduced kidney function, and other findings (as for stage 1) point to kidney disease. 12:58:03 Fentanyl 50 mcg I.V. was administered by Chele Leggett RN; for sedation; Verbal order read back and verified. 12:58:06 Maximum allowable contrast dose (3.7 X eGFR X 0.75)236 ml. 12:58:12 Sedation plan: IV Moderate Sedation Medication:Versed, Fentanyl 12:58:51 Arrival Date: 04/25/2019 12:00:00 AM 12:58:57 Versed 1 mg I.V. was administered by Chele Leggett RN; for sedation; Verbal order read back and verified. 12:59:09 Patient Height : 64.96 inches 12:59:11 Patient Weight : 108.03 lbs 12:59:33 Indication : CAD 12:59:42 Procedure started. 12:59:50 Local anesthetic to right femoral artery with Lidocaine 2% by Stephen Wylie MD.INITIAL ACCESS ONLY 13:00:25 Zero performed for pressure channel P1 13:02:28 A 5 Fr sheath was inserted into the Right Femoral artery 13:02:50 A MULTIPACK JL 4.0 5Fr catheter was advanced over the wire and used for Procedure. 13:03:11 LCA angiography performed. 13:04:26 Catheter exchanged over wire. 13:04:34 A MULTIPACK 3DRC 5Fr catheter was advanced over the wire and used for Procedure. 13:05:03 Versed 1 mg I.V. was administered by Chele Leggett RN; for sedation; Verbal order read back and verified. 13:05:09 Fentanyl 50 mcg I.V. was administered by Chele Leggett RN; for sedation; Verbal order read back and verified. 13:05:31 RCA angiography performed. 13:06:17 ACCDominant side:Right 13:09:06 Catheter exchanged over wire. 13:09:13 A MULTIPACK Pigtail 5 Fr catheter was advanced over the wire and used for Procedure. 13:09:23 LV gram done using GIBSON 13:09:30 Injector settings: Ml/sec: 10, Volume: 20, 13:10:38 LV hemodynamics recorded. 13:10:45 EF : 60 % 13:11:34 Catheter removed. 13:11:36 EXOSEAL 5Fr (EX500) opened to sterile field. 13:12:45 Sheath removed intact; hemostasis achieved with Exoseal to the Right Femoral artery. 13:12:54 Procedure ended.(Physican Out) 13:14:04 Fluoroscopy time 01.60 minutes. 13:14:09 Flurop Dose total: 248 13:14:09 Fluoroscopy dose: 248 mGy 13:14:17 Dose Area Product 03440 mGy/cm. 13:14:46 Contrast amount:Isovue 300 67ml. 13:14:50 Maximum allowable dose exceeded? No. 13:14:51 Sharps counted by scrub and verified by R.N. 13:15:52 Post Procedure Pulses reassessed and unchanged 13:15:57 Post-op/insertion site Right Femoral artery dressed using a 4 x 4 and Tegaderm. 13:16:02 Post procedure: right dorsailis pedis pulse 2+ Normal; easily identifiable; not easily obliterated. 13:16:06 Post-procedure physical assessment completed. ASA score P 2 - A patient with mild systemic disease as per Stephen Wylie MD. 13:16:15 Post procedure rhythm: unchanged. 13:16:19 Estimated blood loss: 5 ml 13:16:22 Post procedure instruction explained to patient.Patient verbalizes understanding. 13:16:23 Patient needs reinforcement of post procedure teaching. 13:17:01 Procedure and supply charges have been captured, reviewed, submitted and are correct. 13:17:05 Procedure Complication : No complications 13:17:08 Vital chart was stopped 13:17:19 [facility] Findings: mild to moderate CAD (<70%) 13:17:21 Operative report dictated upon procedure completion. 13:17:22 See physician's report for complete and final results. 13:17:33 Report given to Pre/Post Procedure Room. 13:17:39 Patient transfered to Pre/Post Procedure Room with Stretcher. 13:17:42 Procedure ended. 13:17:42 Full Disclosure recording stopped 13:17:49 End room use (Document Last) 13:18:07 End room use (Document Last) 13:18:28 End room use (Document Last) Device Usage Item Name Manufacture Quantity Catalog Hospital Part Current Minimal L ot# / Number Charge Number Stock Stock Serial# Code ACIST Acist 1 12505 [id number] 327459 420007 20 Syringe Medical (02459) Systems Inc Bag Microtek 1 2001S 088035 39800 904352 5 Decanter Medical Inc. () ACIST Hand Acist 1 94874 968293 080689 513529 5 Control Medical (26777) Systems Inc ACIST Acist 1 89185 472916 068630 258491 5 Manifold Medical (42898) Systems Inc Tegaderm 4 3M 1 1626W 688334 594783 685855 5 x 4 (1626W) SHEATH 5FR Terumo 1 VHO204 995873 994304 353963 5 Wallace (MZE733) EMERALD Cardinal 1 502-455 413605 141403 113693 5 Guide Wire Health (502-455) DIAGNOSTIC Cardinal 1 HM9410 557156 13800 193043 30 Multipack Health 5Fr catheter set (AB5240) Medline Medline 1 [id number] 204141 12413 129168 5 Cath Pack ([id number]) MULTIPACK Cardinal 1 222716 5 JL 4.0 5Fr Health catheter MULTIPACK Cardinal 1 894378 5 3DRC 5Fr Health catheter MULTIPACK Cardinal 1 272866 5 Pigtail 5 Health Fr catheter EXOSEAL 5Fr Cardinal 1 EX500 052873 437869 544959 10 (EX500) Health Signature Audit [place] Stage Time Signature Unsigned Intra-Procedure 04/25/2019 Noemi Yeboah 1:18:07 PM RT(R) Intra-Procedure 04/25/2019 Buffie Leggett RN 1:18:28 PM Intra-Procedure 04/25/2019 Stephen Wylie MD 1:18:53 PM [facility] [address] [place] [address]
[2019-04-25 10:54] VITALS: BP 178/91; Ht 165.1 cm; Wt 48.6 kg
[2019-04-25 11:06] LABS: BASOPHILS 0.6 % (0-2); EOSINOPHILS 1.6 % (0-7); HEMATOCRIT 43.3 % (36.0-48.0); HEMOGLOBIN 14.4 g/dL (12-16); IMMATURE GRANULOCYTES 0.2 % (0-5); LYMPHOCYTES 37.2 % (15-50); MCH 32.2 pg (26.0-34.0); MCHC 33.3 g/dL (31.0-37.0); MCV 96.9 fL (80.0-100.0); MEAN PLATELET VOLUME 9.6 fL (7.4-10.4); MONOCYTES 7.8 % (2-11); NEUTROPHILS 52.6 % (40-80); RBC 4.47 10x6/uL (4.00-5.40); RDW 14.1 % (11.5-14.5); WBC 5.2 10x3/uL (4.8-10.8)
[2019-04-25 11:17] LABS: CALC OSMOLALITY 284 mosm/kg (275-300); CALCIUM 9.4 mg/dL (8.5-10.1); CARBON DIOXIDE 29.5 mmol/L (21.0-32.0); CHLORIDE - SERUM 106 mmol/L (98-107); CREATININE - SERUM 0.7 mg/dL (0.6-1.3); GLUCOSE 92 mg/dL (74-106); POTASSIUM - SERUM 3.8 mmol/L (3.5-5.1); SODIUM 142 mmol/L (136-145); UREA NITROGEN 19 mg/dL (7-18); eGFR NON AFRICAN AMERICAN 85 mL/min (90-120)
[2019-04-25 11:20] LABS: LDL-HDL RATIO 2.8 ratio (1.5-3.5)
[2019-04-25 11:24] LABS: PLATELET COUNT 244 10x3/uL (130-400)
--- NOTE | 2019-04-25 13:25 | NUR ---
PATIENT ARRIVED TO ROOM 4, PLACED ON CM, VSS, 2L NC. PHYSICIAN AT BEDSIDE TO UPDATE PATIENT AND FAMILY.
[2019-04-25] MEDS ORDERED: ISOSORBIDE MONO30 M1 PO (13:31)
--- NOTE | 2019-04-25 13:40 | NUR ---
PATIENT RESTING, VSS ON 2L NC. RIGHT GROIN DRESSING IS CDI, NO S/S OF BLEEDING OR HEMATOMA. NO C/O PAIN, NUMBNESS, OR TINGLING. FAMILY PRESENT AT BEDSIDE.D
--- NOTE | 2019-04-25 14:10 | NUR ---
HEAD OF BED ELEVATED TO 45 DEGREES. RIGHT GROIN DRESSING IS CDI, NO S/S OF BLEEDING OR HEMATOMA. NO C/O PAIN, NUMBNESS, OR TINGLING. VSS ON ROOM AIR. TOLERATING PO FLUIDS AND FOOD, NO N/V.
--- NOTE | 2019-04-25 14:40 | NUR ---
HEAD OF BED AT 90 DEGREES. RIGHT GROIN DRESSING IS CDI, NO S/S OF BLEEDING OR HEMATOMA. NO C/O PAIN,NUMBNESS, OR TINGLING. VSS ON ROOM AIR. NO N/V.
--- NOTE | 2019-04-25 15:00 | NUR ---
IV REMOVED. WRITTEN AND VERBAL DISCHARGE AND MEDICATION INSTRUCTIONS GIVEN TO PATIENT AND FAMILY, BOTH VOICE UNDERSTANDING. PATIENT VOIDED WITHOUT DIFFICULTY. RIGHT GROIN DRESSING IS CDI, NO S/S OF BLEEDING OR HEMATOMA.
--- NOTE | 2019-04-25 15:10 | NUR ---
PATIENT TRANSPORTED VIA WHEELCHAIR TO CAR WITH FAMILY DRIVING, ALL BLEONGINGS WITH PATIENT.
== END 2019-04-25 15:10 ==
LOC: D.CATH 10:09
PROVIDERS: ATTEND Internal Medicine Cardiovascular Disease
DX: I25.119 Atherosclerotic heart disease of native coronary artery with unspecified angina pectoris (principal); R94.30 Abnormal result of cardiovascular function study, unspecified; T82.855A Stenosis of coronary artery stent, initial encounter; Y83.9 Surgical procedure, unspecified as the cause of abnormal reaction of the patient, or of later complication, without mention of misadventure at the time of the procedure